=== PATIENT | male | born 1985 | race African-American/Black ===

== ENCOUNTER 2020-05-26 19:25 | Emergency (ER) | payer BC ==
--- NOTE | 2020-05-26 20:46 | ER Document Report ---
ED Medical Screen (RME) - General Chief Complaint: Urinary Problem Stated Complaint: DIFFICULTY URINATING Time Seen by Provider: 05/26/20 20:36 Mode of Arrival: Ambulatory Information source: Patient Notes: Patient presents complaining of dysuria, hesitancy and some urinary frequency. Patient denies any penile discharge or fever. Patient denies any abdominal or back pain. I have greeted and performed a rapid initial assessment of this patient. A comprehensive ED assessment and evaluation of the patient, analysis of test results and completion of the medical decision making process will be conducted by additional ED providers. Physical Exam - General General appearance: Appears well, Alert In distress: None
[2020-05-26 21:13] LABS: APPEARANCE,URINE CLEAR; BILIRUBIN,URINE NEGATIVE (NEGATIVE); COLOR,URINE YELLOW; GLUCOSE, URINE NEGATIVE (NEGATIVE); KETONES,URINE NEGATIVE (NEGATIVE); LEUKOCYTE ESTERASE,URINE SMALL (NEGATIVE); NITRITE,URINE NEGATIVE (NEGATIVE); PROTEIN,URINE NEGATIVE (NEGATIVE); URINE SPECIFIC GRAVITY 1.017; UROBILINOGEN,URINE NEGATIVE mg/dL (<2.0)
[2020-05-26 22:55] LABS: CHLAM PCR NOT DETECTED (NOT DETECT)
[2020-05-26] MEDS ORDERED: SULFAMETHOXAZOLE/TRIMETHOPRIM 800-160 MG TABLET PO ONE (23:41)
--- NOTE | 2020-05-26 23:45 | ER Document Report ---
ED General - General Chief Complaint: Urinary Problem Stated Complaint: DIFFICULTY URINATING Time Seen by Provider: 05/26/20 20:36 Mode of Arrival: Ambulatory Notes: Patient is a 34-year-old -[place] male with no reported past medical history presents to the emergency department the chief complaint of dysuria difficulty urinating for the past several days. He states that his girlfriend had a UTI and he feels he might of caught something from her. He denies any pain or swelling in the testicles or scrotum or perineum. Denies any trouble with bowel movements. Denies any abdominal pain or fever. No chills or night sweats. No joint swelling. No penile discharge. No history of STD. Past Medical History - General Information source: Patient - Social History Smoking Status: Unknown if Ever Smoked Family History: Reviewed & Not Pertinent Review of Systems - Review of Systems Constitutional: denies: Fever EENT: denies: Throat pain Cardiovascular: denies: Heart racing Respiratory: denies: Cough Gastrointestinal: denies: Blood in vomit Genitourinary: Dysuria Male Genitourinary: denies: Testicular pain Musculoskeletal: denies: Back pain Skin: denies: Lesions Hematologic/Lymphatic: denies: Anemia Neurological/Psychological: denies: Weakness Physical Exam - Vital signs Vitals: Temp Pulse Resp BP Pulse Ox 98.5 F 89 18 155/103 H 97 05/26/20 20:48 05/26/20 20:48 05/26/20 20:48 05/26/20 20:48 05/26/20 20:48 - General General appearance: Appears well, Alert In distress: None - Respiratory Respiratory status: No respiratory distress Chest status: Nontender Breath sounds: Normal Chest palpation: Normal - Cardiovascular Rhythm: Regular Heart sounds: Normal auscultation - Abdominal Inspection: Normal Distension: No distension Bowel sounds: Normal Tenderness: Nontender Organomegaly: No organomegaly - Rectal Notes: Patient refused prostatic exam - Genitourinary Notes: Patient refused - Neurological Neuro grossly intact: Yes Cognition: Normal Orientation: AAOx4 - Psychological Associated symptoms: Normal affect, Normal mood - Skin Skin Temperature: Warm Skin Moisture: Dry Skin Color: Normal Course - Re-evaluation Re-evalutation: 05/26/20 23:43 After further exploration with a history the patient does admit to having anal intercourse with his significant other. There is a high likelihood that he has come in contact with E. coli explaining the findings in his urinalysis and the negative gonorrhea and chlamydia. Patient will be started on Bactrim for prostatitis. Counseled him at length regarding the importance of close outpatient follow-up and advised that he return here or any ER immediately with any new, persistent or worsening symptoms. He verbalized understood and agreed. States he has a family doctor in [place] and will follow-up. - Vital Signs Vital signs: Temp Pulse Resp BP Pulse Ox 98.5 F 89 18 155/103 H 97 05/26/20 20:48 05/26/20 20:48 05/26/20 20:48 05/26/20 20:48 05/26/20 20:48 - Laboratory Laboratory results interpreted by me: 05/26/20 20:50 Ur Leukocyte Esterase SMALL H Discharge - Discharge Clinical Impression: Prostatitis Qualifiers: Prostatitis type: acute Qualified Code(s): N41.0 - Acute prostatitis Condition: Stable Disposition: HOME, SELF-CARE Instructions: Trimethoprim-Sulfa ([facility]), Prostatitis ([facility]) Additional Instructions: Follow-up with your regular doctor in 2 to 3 days for reevaluation. Return here or any ER immediately with any new, persistent or worsening symptoms. Prescriptions: Sulfamethoxazole/Trimethoprim [Bactrim Ds Tablet] 1 each PO BID #28 tablet Referrals: [facility] [NO LOCAL MD] - Follow up as needed
[2020-05-27 00:43] VITALS: BP 156/100
== END 2020-05-26 22:00 | disposition home or self-care (01) ==
LOC: ER 19:25
DX: N41.0 Acute prostatitis (principal); R39.198 Other difficulties with micturition; R30.0 Dysuria
CPT/HCPCS: 81001; 87491; 87591; 99283